=== PATIENT | male | born 1975 | race African-American/Black ===

== ENCOUNTER → 2024-02-22 06:53 | Outpatient (REF) | payer OTHER, SELFPAY | LOC: RCS 06:53 | PROVIDERS: ATTENDING PHYSICIAN Internal Medicine | DX: R07.9 Chest pain, unspecified (principal) | CPT/HCPCS: 78452; 93017; A9500 ==

== ENCOUNTER → 2024-03-07 09:55 | Outpatient (REF) | payer OTHER, SELFPAY | LOC: HWRCS 09:55 | PROVIDERS: ATTENDING PHYSICIAN Internal Medicine | DX: R07.9 Chest pain, unspecified (principal) | CPT/HCPCS: 93306 ==